=== PATIENT | female | born 1995 | race Caucasian/White ===

== ENCOUNTER 2016-07-19 15:37 | Emergency (ER) | payer OTHER ==
--- NOTE | 2016-07-19 17:01 | ED ---
General Adult HPI - General Chief complaint: Abdominal Pain Stated complaint: abdominal pain Time Seen by Provider: 07/19/16 16:38 Source: patient, RN notes reviewed Mode of arrival: ambulatory Limitations: no limitations - History of Present Illness Initial comments: Patient 20-year-old female who presents emergency room today with a chief complaint of symptoms of abdominal pain with nausea over the last day. Doesn't that symptoms started early this morning approximately 1 AM. She does admit to a crampy type sharp pain located in the epigastric area. She denies ever having similar symptoms in the past. Does admit to feeling nauseated but no vomiting. Denies any other complaints or symptoms. Patient denies any recent fever, chills, shortness of breath, chest pain, back pain, vomiting, numbness or tingling, dysuria or hematuria, constipation or diarrhea, headaches or visual changes, or any other complaints. - Related Data Previous Rx's Medication Instructions Recorded Omeprazole [PriLOSEC] 20 mg PO AC-BRKFST 14 Days 07/19/16 Ondansetron Odt [Zofran ODT] 4 mg PO Q8HR PRN #20 tab 07/19/16 Allergies Allergy/AdvReac Type Severity Reaction Status Date / Time hydromorphone HCl AdvReac Nausea & Verified 07/19/16 16:33 [From Dilaudid] Vomiting morphine AdvReac Nausea & Verified 07/19/16 16:33 Vomiting Review of Systems ROS Statement: Those systems with pertinent positive or pertinent negative responses have been documented in the HPI. ROS Other: All systems not noted in ROS Statement are negative. Past Medical History Past Medical History: No Reported History History of Any Multi-Drug Resistant Organisms: None Reported Past Surgical History: Section, Tonsillectomy Additional Past Surgical History / Comment(s): wisdom teeth Past Psychological History: Depression Smoking Status: Never smoker Past Alcohol Use History: Occasional Past Drug Use History: None Reported General Exam - General Exam Comments Initial Comments: General: The patient is awake and alert, in no distress, and does not appear acutely ill. Eye: Pupils are equal, round and reactive to light, extra-ocular movements are intact. No nystagmus. There is normal conjunctiva bilaterally. No signs of icterus. Ears, nose, mouth and throat: There are moist mucous membranes and no oral lesions. Neck: The neck is supple, there is no tenderness or JVD. Cardiovascular: There is a regular rate and rhythm. No murmur, rub or gallop is appreciated. Respiratory: Lungs are clear to auscultation, respirations are non-labored, breath sounds are equal. No wheezes, stridor, rales, or rhonchi. Gastrointestinal: Present. Normal bowel sounds. Soft on palpation. Patient does have mild tenderness epigastric. No rebound tenderness. No Guarding. Musculoskeletal: Normal ROM, no tenderness. Strength 5/5. Sensation intact. Pulses equal bilaterally 2+. Neurological: A&O x 3. CN II-XII intact, There are no obvious motor or sensory deficits. Coordination appears grossly intact. Speech is normal. Skin: Skin is warm and dry and no rashes or lesions are noted. Psychiatric: Cooperative, appropriate mood & affect, normal judgment. Limitations: no limitations Course Vital Signs 07/19/16 07/19/16 15:46 18:02 Temperature 99.2 F Pulse Rate 90 62 Respiratory 20 16 Rate Blood Pressure 115/72 95/51 O2 Sat by Pulse 98 100 Oximetry Medical Decision Making - Medical Decision Making Patient reexamined at this time shows no signs of distress. Patient resting comfortably in the stretcher. Patient's labs been reviewed are unremarkable. X -rays negative. Results were discussed with the patient. At this time patient will be discharged home with prescription for Zofran and omeprazole. Advised follow-up the family doctor over the next 2 days. Advised return to emergency room if any symptoms increase or worsen or for any other concerns. - Lab Data Result diagrams: 07/19/16 16:43 07/19/16 16:43 Lab Results 07/19/16 07/19/16 07/19/16 Range/Units 14:42 16:43 16:43 WBC 9.2 (3.8-10.6) k/uL RBC 5.26 (3.80-5.40) m/uL Hgb 15.9 (11.4-16.0) gm/dL Hct 47.4 H (34.0-46.0) % MCV 90.1 (80.0-100.0) fL MCH 30.2 (25.0-35.0) pg MCHC 33.6 (31.0-37.0) g/dL RDW 12.7 (11.5-15.5) % Plt Count 186 (150-450) k/uL Neutrophils % 78 % Lymphocytes % 16 % Monocytes % 4 % Eosinophils % 1 % Basophils % 1 % Neutrophils # 7.1 (1.3-7.7) k/uL Lymphocytes # 1.5 (1.0-4.8) k/uL Monocytes # 0.4 (0-1.0) k/uL Eosinophils # 0.1 (0-0.7) k/uL Basophils # 0.1 (0-0.2) k/uL Sodium 142 (137-145) mmol/L Potassium 3.9 (3.5-5.1) mmol/L Chloride 102 (98-107) mmol/L Carbon Dioxide 27 (22-30) mmol/L Anion Gap 13 mmol/L BUN 11 (7-17) mg/dL Creatinine 0.67 (0.52-1.04) mg/dL Est GFR (MDRD) Af Amer >60 (>60 ml/min/1.73 sqM) Est GFR (MDRD) Non-Af >60 (>60 ml/min/1.73 sqM) Glucose 82 (74-99) mg/dL Calcium 9.7 (8.4-10.2) mg/dL Total Bilirubin 1.5 H (0.2-1.3) mg/dL AST 24 (14-36) U/L ALT 24 (9-52) U/L Alkaline Phosphatase 70 (38-126) U/L Total Protein 8.4 H (6.3-8.2) g/dL Albumin 4.9 (3.5-5.0) g/dL Amylase 80 (30-110) U/L Lipase 65 (23-300) U/L Urine Color Urine Appearance (Clear) Urine pH (5.0-8.0) Ur Specific [place] (1.001-1.035) Urine Protein (Negative) Urine Glucose (UA) (Negative) Urine Ketones (Negative) Urine Blood (Negative) Urine Nitrite (Negative) Urine Bilirubin (Negative) Urine Urobilinogen (<2.0) mg/dL Ur Leukocyte Esterase (Negative) Urine HCG, Qual Not Detected (Not Detectd) 07/19/16 Range/Units 16:43 WBC (3.8-10.6) k/uL RBC (3.80-5.40) m/uL Hgb (11.4-16.0) gm/dL Hct (34.0-46.0) % MCV (80.0-100.0) fL MCH (25.0-35.0) pg MCHC (31.0-37.0) g/dL RDW (11.5-15.5) % Plt Count (150-450) k/uL Neutrophils % % Lymphocytes % % Monocytes % % Eosinophils % % Basophils % % Neutrophils # (1.3-7.7) k/uL Lymphocytes # (1.0-4.8) k/uL Monocytes # (0-1.0) k/uL Eosinophils # (0-0.7) k/uL Basophils # (0-0.2) k/uL Sodium (137-145) mmol/L Potassium (3.5-5.1) mmol/L Chloride (98-107) mmol/L Carbon Dioxide (22-30) mmol/L Anion Gap mmol/L BUN (7-17) mg/dL Creatinine (0.52-1.04) mg/dL Est GFR (MDRD) Af Amer (>60 ml/min/1.73 sqM) Est GFR (MDRD) Non-Af (>60 ml/min/1.73 sqM) Glucose (74-99) mg/dL Calcium (8.4-10.2) mg/dL Total Bilirubin (0.2-1.3) mg/dL AST (14-36) U/L ALT (9-52) U/L Alkaline Phosphatase (38-126) U/L Total Protein (6.3-8.2) g/dL Albumin (3.5-5.0) g/dL Amylase (30-110) U/L Lipase (23-300) U/L Urine Color Yellow Urine Appearance Clear (Clear) Urine pH 7.0 (5.0-8.0) Ur Specific [place] 1.020 (1.001-1.035) Urine Protein Negative (Negative) Urine Glucose (UA) Negative (Negative) Urine Ketones Negative (Negative) Urine Blood Negative (Negative) Urine Nitrite Negative (Negative) Urine Bilirubin Negative (Negative) Urine Urobilinogen <2.0 (<2.0) mg/dL Ur Leukocyte Esterase Negative (Negative) Urine HCG, Qual (Not Detectd) Disposition Clinical Impression: Abdominal pain Disposition: HOME SELF-CARE Condition: Good Instructions: Abdominal Pain (ED) Additional Instructions: Please use medication as discussed. Please follow-up with family doctor in the next 2 days of symptoms have not improved. Please return to emergency room if the symptoms increase or worsen or for any other concerns. Prescriptions: Omeprazole [PriLOSEC] 20 mg PO AC-BRKFST 14 Days Ondansetron Odt [Zofran ODT] 4 mg PO Q8HR PRN #20 tab PRN Reason: Nausea Time of Disposition: 18:14
[2016-07-19] MEDS: ONDANSETRON 4 MG/2 ML VIAL IVP STA (17:05)
[2016-07-19] MEDS: SODIUM CHLORIDE 0.9% 1,000 ML IV STA ×2 (17:05)
[2016-07-19 17:29] LABS: Basophils # (A) 0.1 k/uL (0-0.2); Basophils % (A) 1 %; CH 31.1; CHCM 34.7; Eosinophils # (A) 0.1 k/uL (0-0.7); Eosinophils % (A) 1 %; HCT 47.4 % (34.0-46.0); HDW 2.52; HGB 15.9 gm/dL (11.4-16.0); Luc # (Auto) 0.12; Luc % (Auto) 1; Lymphocytes # (A) 1.5 k/uL (1.0-4.8); Lymphocytes % (A) 16 %; MCH 30.2 pg (25.0-35.0); MCHC 33.6 g/dL (31.0-37.0); MCV 90.1 fL (80.0-100.0); Mean Platelet Volume 6.6; Monocytes # (A) 0.4 k/uL (0-1.0); Monocytes % (A) 4 %; Neutrophils # (A) 7.1 k/uL (1.3-7.7); Neutrophils % (A) 78 %; RBC 5.26 m/uL (3.80-5.40); RDW 12.7 % (11.5-15.5); WBC 9.2 k/uL (3.8-10.6)
[2016-07-19 17:32] LABS: Appearance,Urine Clear (Clear); Bilirubin,Urine Negative (Negative); Glucose,Urine (UA) Negative (Negative); Ketones,Urine Negative (Negative); Leukocyte Esterase,Urine Negative (Negative); Nitrite,Urine Negative (Negative); Protein,Urine Negative (Negative); UA Billing (MACRO vs. MICRO) CHEM; Urobilinogen,Urine <2.0 mg/dL (<2.0)
[2016-07-19 17:40] LABS: ALT 24 U/L (9-52); AST 24 U/L (14-36); Alkaline Phosphatase 70 U/L (38-126); Amylase 80 U/L (30-110); Anion Gap 13 mmol/L; Blood Urea Nitrogen 11 mg/dL (7-17); Calcium 9.7 mg/dL (8.4-10.2); Carbon Dioxide 27 mmol/L (22-30); Chloride 102 mmol/L (98-107); Glucose 82 mg/dL (74-99); Non-African American GFR(MDRD) >60 (>60 ml/min/1.73 sqM); Potassium 3.9 mmol/L (3.5-5.1); Sodium 142 mmol/L (137-145); Total Bilirubin 1.5 mg/dL (0.2-1.3); Total Protein 8.4 g/dL (6.3-8.2)
[2016-07-19] MEDS: MAG HYDROX/AL HYDROX/SIMETH 30 ML, HYOSCYAMINE ELIXIR 10 ML, CIMETIDINE HCL 300 MG, LID... PO STA ×4 (18:01)
--- NOTE | 2016-07-19 18:02 | XR ---
EXAMINATION TYPE: XR KUB DATE OF EXAM: 07/19/2016 5:55 PM COMPARISON: NONE HISTORY: Pain TECHNIQUE: Single supine KUB image of the abdomen is obtained FINDINGS: Small bowel demonstrates no evidence for dilatation or air fluid levels. Gas and fecal material is seen in non-distended colon. No convincing evidence for pneumoperitoneum. No unusual calcifications. The lung bases are clear. The osseous structures are intact. IMPRESSION: 1. Overall nonobstructive bowel gas pattern.
[2016-07-19 18:04] VITALS: RESP 16
[2016-07-19 18:32] VITALS: BP 128/68; PULSE 87; TEMP 98.6
== END 2016-07-19 18:30 | disposition home or self-care (01) ==
LOC: EC 15:37
DX: R10.13 Epigastric pain (principal); R11.0 Nausea; Z88.5 Allergy status to narcotic agent
CPT/HCPCS: 36415; 80053; 82150; 83690; 85025; 81003; 81025; 74000; 99284; 96374; 96361; J2405

== ENCOUNTER 2016-08-28 21:55 | Emergency (ER) | payer OTHER ==
[2016-08-28 22:12] VITALS: RESP 18
[2016-08-28] MEDS ORDERED: SODIUM CHLORIDE 0.9% 1,000 ML IV ONE (22:18)
[2016-08-28] MEDS ORDERED: SODIUM CHLORIDE 0.9% 500 ML IV ONE (22:18)
--- NOTE | 2016-08-28 22:20 | ED ---
Abdominal Pain HPI - General Chief Complaint: Abdominal Pain Stated Complaint: abdominal pain-6 wks preg Time Seen by Provider: 08/28/16 22:12 Source: patient, RN notes reviewed Mode of arrival: ambulatory Limitations: no limitations - History of Present Illness Initial Comments: This is a 21-year-old female presents emergency from for abdominal pain.This pain several the last 24 hours. Patient states that she's been feeling dizzy and nauseated with her though the pain started only today. Patient states she's fracture 7 weeks along. Patient has been seen by her lower clinic has not been seen by her [facility]. Patient is A1. Patient has no vaginal bleeding no vaginal discharge. Denies dysuria hematuria. Patient states not been drinking much fluids at this time. Patient has fever chills no back pain. - Related Data Home Medications Medication Instructions Recorded Confirmed No Known Home Medications [No 08/28/16 08/28/16 Known Home Medications] Allergies Allergy/AdvReac Type Severity Reaction Status Date / Time hydromorphone HCl AdvReac Nausea & Verified 08/28/16 22:24 [From Dilaudid] Vomiting morphine AdvReac Nausea & Verified 08/28/16 22:24 Vomiting Review of Systems ROS Statement: Those systems with pertinent positive or pertinent negative responses have been documented in the HPI. ROS Other: All systems not noted in ROS Statement are negative. Past Medical History Past Medical History: No Reported History History of Any Multi-Drug Resistant Organisms: None Reported Past Surgical History: Section, Tonsillectomy Additional Past Surgical History / Comment(s): wisdom teeth Past Psychological History: No Psychological Hx Reported Smoking Status: Never smoker Past Alcohol Use History: Rare Past Drug Use History: None Reported General Exam Limitations: no limitations General appearance: alert, in no apparent distress Neck exam: Present: normal inspection. Absent: tenderness, meningismus, lymphadenopathy Respiratory exam: Present: normal lung sounds bilaterally. Absent: respiratory distress, wheezes, rales, rhonchi, stridor Cardiovascular Exam: Present: regular rate, normal rhythm, normal heart sounds. Absent: systolic murmur, diastolic murmur, rubs, gallop, clicks GI/Abdominal exam: Present: soft, tenderness (Minimal suprapubic), normal bowel sounds. Absent: distended, guarding, rebound, rigid Back exam: Absent: CVA tenderness (R), CVA tenderness (L) Course Vital Signs 08/28/16 08/28/16 22:08 23:12 Temperature 98.2 F 97.9 F Pulse Rate 74 78 Respiratory 18 18 Rate Blood Pressure 113/72 97/59 O2 Sat by Pulse 100 100 Oximetry Medical Decision Making - Medical Decision Making 21-year-old female presents emergency department for abdominal pain . Patient ultrasound shows possible early gestational sac. Patient's hCG quantitative is 5000. Patient lab work otherwise within normal limits. Patient does feel improved after IV fluids. Patient may have had some mild dehydration related to her dizziness. Patient will be discharged at this time advised to increase fluids. - Lab Data Result diagrams: 08/28/16 22:20 08/28/16 22:20 Lab Results 08/28/16 08/28/16 08/28/16 Range/Units 22:20 22:20 22:20 WBC 8.1 (3.8-10.6) k/uL RBC 4.82 (3.80-5.40) m/uL Hgb 14.9 (11.4-16.0) gm/dL Hct 42.5 (34.0-46.0) % MCV 88.2 (80.0-100.0) fL MCH 30.9 (25.0-35.0) pg MCHC 35.0 (31.0-37.0) g/dL RDW 12.3 (11.5-15.5) % Plt Count 200 (150-450) k/uL Neutrophils % 65 % Lymphocytes % 26 % Monocytes % 6 % Eosinophils % 1 % Basophils % 1 % Neutrophils # 5.3 (1.3-7.7) k/uL Lymphocytes # 2.1 (1.0-4.8) k/uL Monocytes # 0.5 (0-1.0) k/uL Eosinophils # 0.1 (0-0.7) k/uL Basophils # 0.0 (0-0.2) k/uL Sodium 140 (137-145) mmol/L Potassium 4.0 (3.5-5.1) mmol/L Chloride 107 (98-107) mmol/L Carbon Dioxide 21 L (22-30) mmol/L Anion Gap 12 mmol/L BUN 13 (7-17) mg/dL Creatinine 0.60 (0.52-1.04) mg/dL Est GFR (MDRD) Af Amer >60 (>60 ml/min/1.73 sqM) Est GFR (MDRD) Non-Af >60 (>60 ml/min/1.73 sqM) Glucose 79 (74-99) mg/dL Calcium 9.6 (8.4-10.2) mg/dL Total Bilirubin 0.9 (0.2-1.3) mg/dL AST 20 (14-36) U/L ALT 23 (9-52) U/L Alkaline Phosphatase 51 (38-126) U/L Total Protein 7.4 (6.3-8.2) g/dL Albumin 4.6 (3.5-5.0) g/dL Lipase 65 (23-300) U/L HCG, Quant 5075.9 mIU/mL Urine Color Yellow Urine Appearance Cloudy H (Clear) Urine pH 5.5 (5.0-8.0) Ur Specific [place] 1.024 (1.001-1.035) Urine Protein Trace H (Negative) Urine Glucose (UA) Negative (Negative) Urine Ketones Trace H (Negative) Urine Blood Negative (Negative) Urine Nitrite Negative (Negative) Urine Bilirubin Negative (Negative) Urine Urobilinogen <2.0 (<2.0) mg/dL Ur Leukocyte Esterase Trace H (Negative) Urine RBC 1 (0-5) /hpf Urine WBC 10 H (0-5) /hpf Ur Squamous Epith Cells 10 H (0-4) /hpf Urine Bacteria Rare H (None) /hpf Urine Mucus Many H (None) /hpf Disposition Clinical Impression: Mild dehydration, Abdominal pain during Disposition: HOME SELF-CARE Condition: Stable Instructions: Abdominal Pain in (ED) Additional Instructions: Please return to the Emergency Department if symptoms worsen or any other concerns. Referrals: Otto Gold MD [Primary Care Provider] - 1-2 days Time of Disposition: 23:15
[2016-08-28 22:38] LABS: Basophils % (A) 1 %; CH 31.3; CHCM 35.6; Eosinophils # (A) 0.1 k/uL (0-0.7); Eosinophils % (A) 1 %; HCT 42.5 % (34.0-46.0); HDW 2.63; HGB 14.9 gm/dL (11.4-16.0); Luc # (Auto) 0.16; Luc % (Auto) 2; Lymphocytes # (A) 2.1 k/uL (1.0-4.8); Lymphocytes % (A) 26 %; MCH 30.9 pg (25.0-35.0); MCV 88.2 fL (80.0-100.0); Mean Platelet Volume 6.6; Monocytes # (A) 0.5 k/uL (0-1.0); Monocytes % (A) 6 %; Neutrophils # (A) 5.3 k/uL (1.3-7.7); Neutrophils % (A) 65 %; RBC 4.82 m/uL (3.80-5.40); RDW 12.3 % (11.5-15.5); WBC 8.1 k/uL (3.8-10.6); WBC (Perox) 7.95
[2016-08-28 22:41] LABS: Appearance,Urine Cloudy (Clear); Bacteria,Urine Rare /hpf; Bilirubin,Urine Negative (Negative); Glucose,Urine (UA) Negative (Negative); Ketones,Urine Trace (Negative); Leukocyte Esterase,Urine Trace (Negative); Mucus,Urine Many /hpf; Nitrite,Urine Negative (Negative); PH, Urine 5.5 (5.0-8.0); Particle Count 10645; Protein,Urine Trace (Negative); RBC,Urine 1 /hpf (0-5); Specific Gravity,Urine 1.024 (1.001-1.035); Squamous Epithelial Cell,Urine 10 /hpf (0-4); UA Billing (MACRO vs. MICRO) MICRO; Urobilinogen,Urine <2.0 mg/dL (<2.0); WBC,Urine 10 /hpf (0-5)
[2016-08-28 22:49] LABS: ALT 23 U/L (9-52); AST 20 U/L (14-36); Alkaline Phosphatase 51 U/L (38-126); Anion Gap 12 mmol/L; Blood Urea Nitrogen 13 mg/dL (7-17); Calcium 9.6 mg/dL (8.4-10.2); Carbon Dioxide 21 mmol/L (22-30); Chloride 107 mmol/L (98-107); Glucose 79 mg/dL (74-99); Non-African American GFR(MDRD) >60 (>60 ml/min/1.73 sqM); Sodium 140 mmol/L (137-145); Total Bilirubin 0.9 mg/dL (0.2-1.3); Total Protein 7.4 g/dL (6.3-8.2)
[2016-08-28 23:06] LABS: HCG,Quantitative Serum 5075.9 mIU/mL
[2016-08-28 23:13] VITALS: BP 97/59; PULSE 78; TEMP 97.9
--- NOTE | 2016-08-28 23:21 | US ---
EXAM: US First Trimester, Transabdominal US , Transvaginal CLINICAL HISTORY: Pain. Beta hCG level unknown. Unsure of LMP. TECHNIQUE: Real-time transabdominal and transvaginal obstetrical ultrasound of the maternal pelvis and a first trimester with image documentation. Transvaginal imaging was used for better evaluation of the fetus and adnexa. COMPARISON: No relevant prior studies available. FINDINGS: Gestation: Probable early intrauterine gestational sac with mean sac diameter of 0.69 cm (out of range for dating). Possible small yolk sac within the aforementioned cystic structure. No pole visualized. Uterus/cervix: Uterus: 8.1 x 3.9 x 5.1 cm. Endometrium is thickened and contains possibly early intrauterine gestational sac. No myometrial mass. Ovaries: Right ovary measures 3.0 x 1.4 x 1.3 cm. Left ovary measures 3.1 x 1.7 x 1.7 cm. Right ovarian cyst measuring 1.7 x 1.0 x 0.8 cm , possibly corpus luteum cyst. Free fluid: Trace free fluid in the pelvis. IMPRESSION: 1. Probable early intrauterine gestational sac with mean sac diameter of 0.63 to 0.65 cm (out of range for dating). Recommend correlation with serial beta hCG levels and repeat ultrasound to reassess. 2. Right ovarian cyst measuring 1.7 x 1.0 x 0.8 cm , possibly corpus luteum cyst. 3. Trace free fluid in the pelvis.
== END 2016-08-28 23:22 | disposition home or self-care (01) ==
LOC: EC 21:55
DX: O99.281 Endocrine, nutritional and metabolic diseases complicating pregnancy, first trimester (principal); O99.89 Other specified diseases and conditions complicating pregnancy, childbirth and the puerperium; E86.0 Dehydration; R10.30 Lower abdominal pain, unspecified; R11.0 Nausea; Z3A.01 Less than 8 weeks gestation of pregnancy; Z88.5 Allergy status to narcotic agent
CPT/HCPCS: 36415; 76801; 76817; 80053; 81001; 83690; 84702; 85025; 96360; 99284

== ENCOUNTER 2016-09-08 15:18 | Emergency (ER) | payer OTHER ==
[2016-09-08 15:23] VITALS: BP 125/75; PULSE 84; RESP 16; TEMP 97.4
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
== END 2016-09-08 16:12 | disposition home or self-care (01) ==
LOC: EC 15:18
DX: O99.89 Other specified diseases and conditions complicating pregnancy, childbirth and the puerperium (principal); M54.9 Dorsalgia, unspecified; Z3A.01 Less than 8 weeks gestation of pregnancy; Z79.899 Other long term (current) drug therapy; Z88.5 Allergy status to narcotic agent; V87.9XXA Person injured in other specified (collision)(noncollision) transport accidents involving nonmotor vehicle (traffic), initial encounter; Y92.410 Unspecified street and highway as the place of occurrence of the external cause
CPT/HCPCS: 99283

== ENCOUNTER 2016-09-13 18:09 | Emergency (ER) | payer OTHER ==
--- NOTE | 2016-09-13 20:48 | ED ---
Female Urogenital HPI - General Chief complaint: OB/Uterine Contractions Stated complaint: cramps,8 weeks preg Time Seen by Provider: 09/13/16 19:57 Source: patient, RN notes reviewed Mode of arrival: ambulatory Limitations: no limitations - History of Present Illness Initial comments: Patient is a 21-year-old female since emergency room for evaluation of abdominal pain. Patient states she is about 8 weeks . Patient states she found out a few weeks ago from home test that she was secondary to missing her menstrual cycle. Patient states her last menstrual cycle was 07/17/2016. Patient states around 2 PM she began developing lower pelvic pain. Patient states it's on and off cramping type pain. Patient is taking anything for pain. Patient states she has a history of 1 prior full- term and 1 prior miscarriage. Patient denies history of ectopic pregnancies. Patient denies any abnormal vaginal discharge or vaginal bleeding. Patient states she's been nauseous throughout her . Patient denies any nausea today. Patient denies dizziness. Patient denies chest pain or shortness of breath. Patient denies fevers or chills. Last Menstrual Period: 07/18/16 - Related Data Home Medications Medication Instructions Recorded Confirmed Pnv,Calcium 72/Iron/Folic Acid 1 tab PO DAILY 09/08/16 09/13/16 [ Plus Tablet] Allergies Allergy/AdvReac Type Severity Reaction Status Date / Time hydromorphone HCl AdvReac Nausea & Verified 09/13/16 21:14 [From Dilaudid] Vomiting morphine AdvReac Nausea & Verified 09/13/16 21:14 Vomiting Review of Systems ROS Statement: Those systems with pertinent positive or pertinent negative responses have been documented in the HPI. ROS Other: All systems not noted in ROS Statement are negative. Past Medical History Past Medical History: No Reported History History of Any Multi-Drug Resistant Organisms: None Reported Past Surgical History: Section, Tonsillectomy Additional Past Surgical History / Comment(s): wisdom teeth Past Psychological History: No Psychological Hx Reported Smoking Status: Never smoker Past Alcohol Use History: Rare Past Drug Use History: None Reported General Exam - General Exam Comments Initial Comments: sitting in exam room, no distress. Limitations: no limitations General appearance: alert, in no apparent distress Head exam: Present: atraumatic, normocephalic, normal inspection Eye exam: Present: normal appearance ENT exam: Present: normal exam Neck exam: Present: normal inspection Respiratory exam: Present: normal lung sounds bilaterally. Absent: respiratory distress Cardiovascular Exam: Present: regular rate, normal rhythm, normal heart sounds GI/Abdominal exam: Present: soft, tenderness (right lower quadrant/left lower quadrant), normal bowel sounds. Absent: distended, guarding, rebound, rigid External exam: Present: normal external exam Speculum exam: Present: vaginal discharge By manual exam: Present: normal by manual exam Extremities exam: Present: normal inspection Back exam: Present: normal inspection Neurological exam: Present: alert, oriented X3, CN II-XII intact, normal gait Psychiatric exam: Present: normal affect, normal mood Skin exam: Present: warm, dry, intact, normal color. Absent: rash Course Vital Signs 09/13/16 09/13/16 18:40 22:57 Temperature 99.7 F H 97.4 F L Pulse Rate 59 L 70 Respiratory 20 18 Rate Blood Pressure 95/58 110/59 O2 Sat by Pulse 99 98 Oximetry Medical Decision Making - Medical Decision Making Patient is a 21-year-old female since emergency room for evaluation of lower pelvic pain. Patient is . Ultrasound: Gestational age is 7 weeks 1 day. There is a tiny subchorionic fluid collection that could be a minimal perigestational hemorrhage. patient has no vaginal bleeding. advised patient to follow-up with [facility]. Return parameters discussed. Case discussed Dr. [place]. - Lab Data Lab Results 09/13/16 09/13/16 Range/Units 20:56 20:56 Urine Color Yellow Urine Appearance Clear (Clear) Urine pH 6.0 (5.0-8.0) Ur Specific [place] 1.021 (1.001-1.035) Urine Protein Negative (Negative) Urine Glucose (UA) Negative (Negative) Urine Ketones Negative (Negative) Urine Blood Negative (Negative) Urine Nitrite Negative (Negative) Urine Bilirubin Negative (Negative) Urine Urobilinogen 2.0 (<2.0) mg/dL Ur Leukocyte Esterase Negative (Negative) Trichomonas Ag (Rapid) Negative (Negative) - Radiology Data Radiology results: report reviewed, image reviewed Disposition Clinical Impression: Abdominal pain during Disposition: HOME SELF-CARE Condition: Good Instructions: Abdominal Pain in (ED) Additional Instructions: Refrain from heavy lifting. Take Tylenol as needed for pain. Please follow up with [facility]. If any new symptom arises or symptoms worsen, return to ER as soon as possible. Referrals: Otto Gold MD [Primary Care Provider] - 1-2 days Time of Disposition: 22:48
[2016-09-13] MEDS ORDERED: ACETAMINOPHEN TAB 325 MG TAB PO STA (20:56)
[2016-09-13 21:11] LABS: Appearance,Urine Clear (Clear); Bilirubin,Urine Negative (Negative); Glucose,Urine (UA) Negative (Negative); Ketones,Urine Negative (Negative); Leukocyte Esterase,Urine Negative (Negative); Nitrite,Urine Negative (Negative); Protein,Urine Negative (Negative); Specific Gravity,Urine 1.021 (1.001-1.035); UA Billing (MACRO vs. MICRO) CHEM
--- NOTE | 2016-09-13 21:54 | US ---
EXAMINATION TYPE: US OB <=14 wks transvag DATE OF EXAM: 09/13/2016 COMPARISON: Prior in PACS CLINICAL HISTORY: Pain. EXAM PERFORMED: Transvaginal (TV) and Transabdominal (TA) EXAM MEASUREMENTS: GESTATIONAL AGE / DATING Physician Established: Not established Dates by LMP: Unsure Dates by First Scan: No IUP visualized Dates by Current Scan for: (7 weeks/1 days) EDC: 05/01/2017 MATERNAL ANATOMY Uterus: 8.4 x 5.3 x 5.1 cm Right Ovary: 2.8 x 1.1 x 1.8 cm Left Ovary: 2.5 x 1.5 x 2.0 cm Post CDS / Adnexa: Small amount of free fluid visualized in cul de sac Presence of free fluid: Yes Presence of corpus luteal cyst: No Presence of subchorionic bleed: Yes, measuring 1.7 x 0.3 x 1.3 cm GESTATION / SURVEY CRL: 1.07 (7 weeks/1 days) Yolk Sac (normal less than 6mm): 3 mm Heart Rate: 147 bpm Rhythm: Normal IUP: Viable IUP Date of LMP: Unsure Beta HcG (if available): Not available at time of exam Viable IUP with an GRACY of 05/01/2017 IMPRESSION: The ultrasound gestational age is 7 weeks 1 day. There is a tiny subchorionic fluid collection that c ould be a minimal perigestational hemorrhage.
[2016-09-13 22:57] VITALS: BP 110/59; PULSE 70; RESP 18; TEMP 97.4
== END 2016-09-13 22:57 | disposition home or self-care (01) ==
LOC: EC 18:09
DX: O99.89 Other specified diseases and conditions complicating pregnancy, childbirth and the puerperium (principal); R10.31 Right lower quadrant pain; R10.32 Left lower quadrant pain; Z88.5 Allergy status to narcotic agent; Z98.890 Other specified postprocedural states; Z3A.08 8 weeks gestation of pregnancy; Z79.899 Other long term (current) drug therapy
CPT/HCPCS: 76801; 76817; 81003; 87070; 87205; 87491; 87591; 87808; 99284

== ENCOUNTER → 2016-10-24 | Outpatient (CLI) | payer OTHER ==
[2016-10-24 13:40] LABS: CH 31.4; CHCM 35.4; HCT 43.2 % (34.0-46.0); HDW 2.74; HGB 14.7 gm/dL (11.4-16.0); MCH 30.3 pg (25.0-35.0); MCHC 33.9 g/dL (31.0-37.0); MCV 89.4 fL (80.0-100.0); Mean Platelet Volume 6.6; RBC 4.84 m/uL (3.80-5.40); RDW 13.1 % (11.5-15.5); WBC 7.8 k/uL (3.8-10.6)
[2016-10-24 13:51] LABS: Glucose 105 mg/dL (74-99); Non-African American GFR(MDRD) >60 (>60 ml/min/1.73 sqM)
[2016-10-24 14:20] LABS: Hepatitis B Surface Ag Index 0.06
[2016-10-25 04:36] LABS: Toxoplasma Antibody (IgG) <3.0 IU/mL (<7.2)
== END | disposition home or self-care (01) ==
LOC: LABWHC1 13:08
PROVIDERS: ATTEND Obstetrics & Gynecology
DX: Z34.81 Encounter for supervision of other normal pregnancy, first trimester (principal)
CPT/HCPCS: 36415; 82565; 82947; 85027; 86762; 86777; 86778; 86780; 86850; 86900; 86901; 87340

== ENCOUNTER 2016-11-02 15:47 | Emergency (ER) | payer OTHER ==
[2016-11-02 15:53] VITALS: TEMP 98.3
[2016-11-02] MEDS ORDERED: SODIUM CHLORIDE 0.9% 1,000 ML IV STA (16:18)
[2016-11-02] MEDS ORDERED: MECLIZINE 12.5 MG TAB PO STA (16:20)
--- NOTE | 2016-11-02 16:25 | ED ---
General Adult HPI - General Chief complaint: Dizziness Stated complaint: 15 weeks /Dizzy/Lightheaded Time Seen by Provider: 11/02/16 16:09 Source: patient, RN notes reviewed Mode of arrival: ambulatory Limitations: no limitations - History of Present Illness Initial comments: Patient 21-year-old female who is approximately 15 weeks , who presents emergency room today with a chief complaint of feeling lightheaded and dizzy. She does admit that symptoms started yesterday. States that when she is up moving around symptoms seem to be worse. States feels unsteady on her feet. She describes it as swaying back and forth. Patient does admit that she thought maybe she was dehydrated due to symptoms of nausea vomiting due to the . She states that she did try to increase fluids last night with no improvement. Patient denies any other complaints or symptoms. Patient denies any recent fever, chills, shortness of breath, chest pain, back pain, abdominal pain, numbness or tingling, dysuria or hematuria, constipation or diarrhea, headaches or visual changes, or any other complaints. - Related Data Home Medications Medication Instructions Recorded Confirmed Pnv,Calcium 72/Iron/Folic Acid 1 tab PO DAILY 09/08/16 11/02/16 [ Plus Tablet] Previous Rx's Medication Instructions Recorded Metoclopramide HCl [Reglan] 10 mg PO Q6HR PRN #5 day 11/02/16 Allergies Allergy/AdvReac Type Severity Reaction Status Date / Time hydromorphone HCl AdvReac Nausea & Verified 11/02/16 16:11 [From Dilaudid] Vomiting morphine AdvReac Nausea & Verified 11/02/16 16:11 Vomiting Review of Systems ROS Statement: Those systems with pertinent positive or pertinent negative responses have been documented in the HPI. ROS Other: All systems not noted in ROS Statement are negative. Past Medical History Past Medical History: No Reported History History of Any Multi-Drug Resistant Organisms: None Reported Past Surgical History: Section, Tonsillectomy Additional Past Surgical History / Comment(s): wisdom teeth Past Psychological History: No Psychological Hx Reported Smoking Status: Never smoker Past Alcohol Use History: Rare Past Drug Use History: None Reported General Exam - General Exam Comments Initial Comments: General: The patient is awake and alert, in no distress, and does not appear acutely ill. Eye: Pupils are equal, round and reactive to light, extra-ocular movements are intact. No nystagmus. There is normal conjunctiva bilaterally. No signs of icterus. Ears, nose, mouth and throat: There are moist mucous membranes and no oral lesions. Neck: The neck is supple, there is no tenderness or JVD. Cardiovascular: There is a regular rate and rhythm. No murmur, rub or gallop is appreciated. Respiratory: Lungs are clear to auscultation, respirations are non-labored, breath sounds are equal. No wheezes, stridor, rales, or rhonchi. Gastrointestinal: Soft, non-distended, non-tender abdomen without masses or organomegaly noted. There is no rebound or guarding present. No CVA tenderness. Bowel sounds are unremarkable. Musculoskeletal: Normal ROM, no tenderness. Strength 5/5. Sensation intact. Pulses equal bilaterally 2+. Neurological: A&O x 3. CN II-XII intact, There are no obvious motor or sensory deficits. Coordination appears grossly intact. Speech is normal. Skin: Skin is warm and dry and no rashes or lesions are noted. Psychiatric: Cooperative, appropriate mood & affect, normal judgment. Limitations: no limitations Course Vital Signs 11/02/16 11/02/16 15:50 16:30 Temperature 98.3 F Pulse Rate 64 78 Respiratory 18 20 Rate Blood Pressure 103/71 100/55 O2 Sat by Pulse 99 100 Oximetry EKG Findings - EKG Comments: EKG Findings:: EKG performed at 1637: A 12-lead EKG was performed and interpreted by me as showing the following: Rate is 71, and rhythm is normal sinus. There are normal QRS complexes and normal R-wave progression. ST segments have no elevation or depression, and WA segments appear normal. Medical Decision Making - Medical Decision Making Patient reexamined at this time shows no signs of distress. Patient's initial blood glucose off her labs is 63. She was given crackers juice here in the emergency room blood sugar now 86. She does not that she is feeling better. She states still feels a little lightheaded. Patient given a liter bolus. Remaining labs been reviewed. Case discussed with attending physician Dr. Dobson. Patient will discharged home given a prescription for Reglan for her nausea vomiting. Advised to eat frequent small meals. Advised to increase oral fluids. Advised to follow-up with her [employer] tomorrow. Advised to return here to emergency room if any symptoms increase or worsen or for any other concerns. Patient states understanding and is in agreement. - Lab Data Result diagrams: 11/02/16 16:35 11/02/16 16:35 Lab Results 11/02/16 11/02/16 11/02/16 Range/Units 16:35 16:35 16:35 WBC 10.4 (3.8-10.6) k/uL RBC 4.83 (3.80-5.40) m/uL Hgb 14.7 (11.4-16.0) gm/dL Hct 42.9 (34.0-46.0) % MCV 88.8 (80.0-100.0) fL MCH 30.5 (25.0-35.0) pg MCHC 34.4 (31.0-37.0) g/dL RDW 13.7 (11.5-15.5) % Plt Count 190 (150-450) k/uL Neutrophils % 83 % Lymphocytes % 12 % Monocytes % 4 % Eosinophils % 0 % Basophils % 0 % Neutrophils # 8.6 H (1.3-7.7) k/uL Lymphocytes # 1.2 (1.0-4.8) k/uL Monocytes # 0.4 (0-1.0) k/uL Eosinophils # 0.0 (0-0.7) k/uL Basophils # 0.0 (0-0.2) k/uL Sodium 135 L (137-145) mmol/L Potassium 4.5 (3.5-5.1) mmol/L Chloride 106 (98-107) mmol/L Carbon Dioxide 18 L (22-30) mmol/L Anion Gap 11 mmol/L BUN 7 (7-17) mg/dL Creatinine 0.54 (0.52-1.04) mg/dL Est GFR (MDRD) Af Amer >60 (>60 ml/min/1.73 sqM) Est GFR (MDRD) Non-Af >60 (>60 ml/min/1.73 sqM) Glucose 63 L (74-99) mg/dL POC Glucose (mg/dL) (75-99) mg/dL POC Glu Care Connector ID Calcium 8.8 (8.4-10.2) mg/dL Total Bilirubin 1.0 (0.2-1.3) mg/dL AST 22 (14-36) U/L ALT 23 (9-52) U/L Alkaline Phosphatase 59 (38-126) U/L Total Protein 6.6 (6.3-8.2) g/dL Albumin 3.7 (3.5-5.0) g/dL Urine Color Yellow Urine Appearance Clear (Clear) Urine pH 7.0 (5.0-8.0) Ur Specific [place] 1.018 (1.001-1.035) Urine Protein Trace H (Negative) Urine Glucose (UA) Negative (Negative) Urine Ketones 2+ H (Negative) Urine Blood Negative (Negative) Urine Nitrite Negative (Negative) Urine Bilirubin Negative (Negative) Urine Urobilinogen 3.0 (<2.0) mg/dL Ur Leukocyte Esterase Trace H (Negative) Urine RBC 2 (0-5) /hpf Urine WBC 6 H (0-5) /hpf Ur Squamous Epith Cells 2 (0-4) /hpf Urine Mucus Rare H (None) /hpf 11/02/16 Range/Units 17:53 WBC (3.8-10.6) k/uL RBC (3.80-5.40) m/uL Hgb (11.4-16.0) gm/dL Hct (34.0-46.0) % MCV (80.0-100.0) fL MCH (25.0-35.0) pg MCHC (31.0-37.0) g/dL RDW (11.5-15.5) % Plt Count (150-450) k/uL Neutrophils % % Lymphocytes % % Monocytes % % Eosinophils % % Basophils % % Neutrophils # (1.3-7.7) k/uL Lymphocytes # (1.0-4.8) k/uL Monocytes # (0-1.0) k/uL Eosinophils # (0-0.7) k/uL Basophils # (0-0.2) k/uL Sodium (137-145) mmol/L Potassium (3.5-5.1) mmol/L Chloride (98-107) mmol/L Carbon Dioxide (22-30) mmol/L Anion Gap mmol/L BUN (7-17) mg/dL Creatinine (0.52-1.04) mg/dL Est GFR (MDRD) Af Amer (>60 ml/min/1.73 sqM) Est GFR (MDRD) Non-Af (>60 ml/min/1.73 sqM) Glucose (74-99) mg/dL POC Glucose (mg/dL) 86 (75-99) mg/dL POC Glu Care Connector ID [place] Calcium (8.4-10.2) mg/dL Total Bilirubin (0.2-1.3) mg/dL AST (14-36) U/L ALT (9-52) U/L Alkaline Phosphatase (38-126) U/L Total Protein (6.3-8.2) g/dL Albumin (3.5-5.0) g/dL Urine Color Urine Appearance (Clear) Urine pH (5.0-8.0) Ur Specific [place] (1.001-1.035) Urine Protein (Negative) Urine Glucose (UA) (Negative) Urine Ketones (Negative) Urine Blood (Negative) Urine Nitrite (Negative) Urine Bilirubin (Negative) Urine Urobilinogen (<2.0) mg/dL Ur Leukocyte Esterase (Negative) Urine RBC (0-5) /hpf Urine WBC (0-5) /hpf Ur Squamous Epith Cells (0-4) /hpf Urine Mucus (None) /hpf Disposition Clinical Impression: Hypoglycemia, Hyperemesis gravidarum Disposition: HOME SELF-CARE Condition: Good Instructions: Dizziness (ED) Additional Instructions: General: The patient is awake and alert, in no distress, and does not appear acutely ill. Eye: Pupils are equal, round and reactive to light, extra-ocular movements are intact. No nystagmus. There is normal conjunctiva bilaterally. No signs of icterus. Ears, nose, mouth and throat: There are moist mucous membranes and no oral lesions. Neck: The neck is supple, there is no tenderness or JVD. Cardiovascular: There is a regular rate and rhythm. No murmur, rub or gallop is appreciated. Respiratory: Lungs are clear to auscultation, respirations are non-labored, breath sounds are equal. No wheezes, stridor, rales, or rhonchi. Gastrointestinal: [Soft, non-distended, non-tender abdomen without masses or organomegaly noted. There is no rebound or guarding present. No CVA tenderness. Bowel sounds are unremarkable.] Musculoskeletal: Normal ROM, no tenderness. Strength 5/5. Sensation intact. Pulses equal bilaterally 2+. Neurological: A&O x 3. CN II-XII intact, There are no obvious motor or sensory deficits. Coordination appears grossly intact. Speech is normal. Skin: Skin is warm and dry and no rashes or lesions are noted. Psychiatric: Cooperative, appropriate mood & affect, normal judgment. Prescriptions: Metoclopramide HCl [Reglan] 10 mg PO Q6HR PRN #5 day PRN Reason: Nausea Referrals: Otto Gold MD [Primary Care Provider] - 1-2 days Time of Disposition: 18:06
[2016-11-02 16:50] VITALS: RESP 20
[2016-11-02 17:08] LABS: Basophils % (A) 0 %; CH 31.6; CHCM 35.8; Eosinophils % (A) 0 %; HCT 42.9 % (34.0-46.0); HDW 2.77; HGB 14.7 gm/dL (11.4-16.0); Luc # (Auto) 0.12; Luc % (Auto) 1; Lymphocytes # (A) 1.2 k/uL (1.0-4.8); Lymphocytes % (A) 12 %; MCH 30.5 pg (25.0-35.0); MCHC 34.4 g/dL (31.0-37.0); MCV 88.8 fL (80.0-100.0); Monocytes # (A) 0.4 k/uL (0-1.0); Monocytes % (A) 4 %; Neutrophils # (A) 8.6 k/uL (1.3-7.7); Neutrophils % (A) 83 %; RBC 4.83 m/uL (3.80-5.40); RDW 13.7 % (11.5-15.5); WBC 10.4 k/uL (3.8-10.6); WBC (Perox) 10.03
[2016-11-02 17:13] LABS: Appearance,Urine Clear (Clear); Bilirubin,Urine Negative (Negative); Glucose,Urine (UA) Negative (Negative); Ketones,Urine 2+ (Negative); Leukocyte Esterase,Urine Trace (Negative); Mucus,Urine Rare /hpf; Nitrite,Urine Negative (Negative); Particle Count 2782; Protein,Urine Trace (Negative); RBC,Urine 2 /hpf (0-5); Specific Gravity,Urine 1.018 (1.001-1.035); Squamous Epithelial Cell,Urine 2 /hpf (0-4); UA Billing (MACRO vs. MICRO) MICRO; WBC,Urine 6 /hpf (0-5)
[2016-11-02 17:14] LABS: ALT 23 U/L (9-52); AST 22 U/L (14-36); Alkaline Phosphatase 59 U/L (38-126); Anion Gap 11 mmol/L; Blood Urea Nitrogen 7 mg/dL (7-17); Calcium 8.8 mg/dL (8.4-10.2); Carbon Dioxide 18 mmol/L (22-30); Chloride 106 mmol/L (98-107); Glucose 63 mg/dL (74-99); Non-African American GFR(MDRD) >60 (>60 ml/min/1.73 sqM); Potassium 4.5 mmol/L (3.5-5.1); Sodium 135 mmol/L (137-145); Total Protein 6.6 g/dL (6.3-8.2)
[2016-11-02 17:54] LABS: Glucose,Whole Blood 86 mg/dL (75-99)
[2016-11-02 18:17] VITALS: BP 107/67; PULSE 88
== END 2016-11-02 18:17 | disposition home or self-care (01) ==
LOC: EC 15:47
DX: O21.0 Mild hyperemesis gravidarum (principal); O99.282 Endocrine, nutritional and metabolic diseases complicating pregnancy, second trimester; E16.2 Hypoglycemia, unspecified; Z3A.15 15 weeks gestation of pregnancy; Z79.899 Other long term (current) drug therapy; Z88.5 Allergy status to narcotic agent
CPT/HCPCS: 36415; 80053; 81001; 85025; 87086; 93005; 96360; 99284

== ENCOUNTER 2017-12-04 13:34 | Emergency (ER) | payer OTHER ==
[2017-12-04 13:39] VITALS: BP 113/78; PULSE 100; RESP 18; TEMP 98.2
--- NOTE | 2017-12-04 14:05 | ED ---
Female Urogenital HPI - General Chief complaint: Urogenital Stated complaint: poss UTI Time Seen by Provider: 12/04/17 13:42 Source: patient, RN notes reviewed Mode of arrival: ambulatory Limitations: no limitations - History of Present Illness Initial comments: This is a 22-year-old female who presents to the emergency department with chief complaint of possible UTI and STD. Patient states that she has been feeling sweaty and having chills. She reports a fever 101 last night. She states that she has been having right flank pain, urinary frequency and feeling like she is not completely emptying her bladder. She reports a stinging sensation with urination. Patient states that she has been with the same sexual partner for the past 2 years but states she is unsure if he has been faithful. She states she is concerned for an STD as she is experiencing external genitalia irritation. Patient denies any abdominal pain, nausea or vomiting, diarrhea or constipation. Last Menstrual Period: 11/13/17 - Related Data Previous Rx's Medication Instructions Recorded valACYclovir HCL [Valtrex] 1,000 mg PO BID 7 Days #14 tablet 12/04/17 Allergies Allergy/AdvReac Type Severity Reaction Status Date / Time hydromorphone HCl AdvReac Nausea & Verified 12/04/17 13:54 [From Dilaudid] Vomiting morphine AdvReac Nausea & Verified 12/04/17 13:54 Vomiting Review of Systems ROS Statement: Those systems with pertinent positive or pertinent negative responses have been documented in the HPI. ROS Other: All systems not noted in ROS Statement are negative. Past Medical History Past Medical History: No Reported History History of Any Multi-Drug Resistant Organisms: None Reported Past Surgical History: Section, Tonsillectomy Additional Past Surgical History / Comment(s): wisdom teeth Past Psychological History: No Psychological Hx Reported Smoking Status: Never smoker Past Alcohol Use History: Occasional Past Drug Use History: None Reported General Exam - General Exam Comments Initial Comments: General: Awake and alert, well-developed; in no apparent distress. HEENT: Head atraumatic, normocephalic. Pupils are equal, round and reactive to light. Extraocular movements intact. Oropharynx moist without erythema or exudate. Neck: Supple. Normal ROM. Cardiovascular: Regular rate and rhythm. No murmurs, rubs or gallops. Chest symmetrical. Respiratory: Lungs clear to auscultation bilaterally. No wheezes, rales or rhonchi. Normal respiratory effort with no use of accessory muscles. Abdomen: Soft, non-tender, non-distended. No rigidity, rebound or guarding. Normal bowel sounds in all 4 quadrants. Mild right CVA tenderness. Musculoskeletal: Normal ROM, no tenderness bilateral upper and lower extremities. Ambulating normally. Skin: [place], warm and dry without rashes or lesions. Neurological: Alert and oriented x3. CN II-XII grossly intact. Speech is fluent and answers are appropriate. No focal neuro deficits. Psychiatric: Normal mood and affect. No overt signs of depression or anxiety noted. Limitations: no limitations External exam: Present: lesions (vesicular lesions bilateral labia majora and ulcerations of right labia minora-painful ). Absent: erythema, swelling, lacerations, ecchymosis Speculum exam: Present: vaginal discharge (thin, white), other (whitish ulcer superior vaginal wall ). Absent: erythema, vaginal bleeding By manual exam: Present: normal by manual exam. Absent: cervical motion tenderness, adnexal tenderness, uterine tenderness Course Vital Signs 12/04/17 13:37 Temperature 98.2 F Pulse Rate 100 Respiratory 18 Rate Blood Pressure 113/78 O2 Sat by Pulse 99 Oximetry Medical Decision Making - Medical Decision Making This is a 22-year-old female who presents to the emergency department with chief complaint of possible UTI and STD. Patient reports urinary frequency and difficulty fully emptying her bladder. She reports right flank pain, chills and sweats and stinging with urination. Patient is unsure if she has any genitalia lesions. She denies any abnormal vaginal discharge or bleeding. Pelvic exam is performed and vesicular/ulcer-like lesions are noted externally with an ulcer noted to the superior vaginal wall. Swabs were taken for chlamydia, gonorrhea, Trichomonas and herpes. Trichomonas is negative. Patient denies ever having an STD. She states that she has been with the same partner for 2 years. She states that they have 2 children together. Patient states that she was concerned for an STD because she caught her boyfriend secretly talking with another female. Urine hCG is negative. UA does reveal leukocyte esterase, high white blood cells and white blood cell clumps. Patient was given ceftriaxone to cover for both gonorrhea and urinary tract infection. She is also given azithromycin to cover chlamydia. Patient will be started on an antiviral as lesions do appear to be herpetic in nature. Discussed with patient waiting for confirmation of confirmed diagnosis. Patient was informed that these tests are send outs and it may take a few days. Patient's vital signs are stable and she is in no acute distress. - Lab Data Lab Results 12/04/17 12/04/17 12/04/17 Range/Units 13:40 13:40 14:11 Urine Color Yellow Urine Appearance Turbid H (Clear) Urine pH 8.0 (5.0-8.0) Ur Specific [place] 1.016 (1.001-1.035) Urine Protein 2+ H (Negative) Urine Glucose (UA) Negative (Negative) Urine Ketones Negative (Negative) Urine Blood Moderate H (Negative) Urine Nitrite Negative (Negative) Urine Bilirubin Negative (Negative) Urine Urobilinogen 2.0 (<2.0) mg/dL Ur Leukocyte Esterase Large H (Negative) Urine RBC 79 H (0-5) /hpf Urine WBC >182 H (0-5) /hpf Urine WBC Clumps Occasional H (None) /hpf Ur Squamous Epith Cells 2 (0-4) /hpf Urine Bacteria Rare H (None) /hpf Urine Mucus Few H (None) /hpf Urine HCG, Qual Not Detected (Not Detectd) Trichomonas Ag (Rapid) Negative (Negative) Disposition Clinical Impression: Urinary tract infection, Female genital lesion Disposition: HOME SELF-CARE Condition: Good Instructions: Sexually Transmitted Diseases (ED), Urinary Tract Infection in Women (ED) Additional Instructions: Please take medications as prescribed. Please follow up with primary care provider within 1-2 days. Return to emergency department if symptoms should worsen or any concerns arise. Prescriptions: valACYclovir HCL [Valtrex] 1,000 mg PO BID 7 Days #14 tablet Is patient prescribed a controlled substance at d/c from ED?: No Referrals: Otto Gold MD [Primary Care Provider] - 1-2 days Time of Disposition: 15:11
[2017-12-04 14:07] LABS: Appearance,Urine Turbid (Clear); Bacteria,Urine Rare /hpf; Bilirubin,Urine Negative (Negative); Blood,Urine Moderate (Negative); Color,Urine Yellow; Glucose,Urine (UA) Negative (Negative); Ketones,Urine Negative (Negative); Leukocyte Esterase,Urine Large (Negative); Mucus,Urine Few /hpf; Nitrite,Urine Negative (Negative); Protein,Urine 2+ (Negative); RBC,Urine 79 /hpf (0-5); Specific Gravity,Urine 1.016 (1.001-1.035); Squamous Epithelial Cell,Urine 2 /hpf (0-4); WBC,Urine >182 /hpf (0-5)
[2017-12-04] MEDS ORDERED: cefTRIAXone 1,000 MG VIAL (IM USE) IM STA (14:22)
[2017-12-04] MEDS ORDERED: AZITHROMYCIN 500 MG TAB PO STA (14:22)
[2017-12-05 14:51] LABS: C. trachomatis,PCR Positive (Neg,Equiv); Chlamydia trachomatis Source Cervix; N. gonorrhoeae,PCR Negative (Neg,Equiv); Neisseria Source Cervix
== END 2017-12-04 15:28 | disposition home or self-care (01) ==
LOC: EC 13:34
DX: N39.0 Urinary tract infection, site not specified (principal); D72.829 Elevated white blood cell count, unspecified; Z88.5 Allergy status to narcotic agent
CPT/HCPCS: 87529; 81001; 81025; 87808; 87491; 87591; 99284; 96372; J0696

== ENCOUNTER 2017-12-06 05:58 | Emergency (ER) | payer OTHER ==
[2017-12-06 06:08] VITALS: BP 108/80; PULSE 95; RESP 20; TEMP 96
--- NOTE | 2017-12-06 07:09 | ED ---
General Adult HPI - General Chief complaint: Urogenital Stated complaint: Urine Retention Time Seen by Provider: 12/06/17 06:37 Source: patient, family, RN notes reviewed Mode of arrival: ambulatory Limitations: no limitations - History of Present Illness Initial comments: Patient 22-year-old female who presents emergency room today with a chief complaint of dysuria. Patient states that she was seen here in the emergency room 2 days ago diagnosed with herpes. She states that she does have genital lesions. She states this is first outbreak. Patient states that she has been taking Valtrex over the last 2 days. States had little relief and still experiencing increased burning sensation on urination. Patient also admits that she was treated with azithromycin and Rocephin here in the emergency room. Patient denies any other complaints or symptoms. Patient denies any recent fever, chills, shortness of breath, chest pain, back pain, abdominal pain, nausea or vomiting, numbness or tingling, constipation or diarrhea, headaches or visual changes, or any other complaints. - Related Data Home Medications Medication Instructions Recorded Confirmed valACYclovir HCL [Valtrex] 1,000 mg PO Q12HR 12/06/17 12/06/17 Previous Rx's Medication Instructions Recorded Nitrofurantoin Monohyd/M-Cryst 100 mg PO Q12HR #14 cap 12/06/17 [Macrobid] Phenazopyridine [Pyridium] 100 mg PO TID 3 Days day 12/06/17 Allergies Allergy/AdvReac Type Severity Reaction Status Date / Time hydromorphone HCl AdvReac Nausea & Verified 12/06/17 06:08 [From Dilaudid] Vomiting morphine AdvReac Nausea & Verified 12/06/17 06:08 Vomiting Review of Systems ROS Statement: Those systems with pertinent positive or pertinent negative responses have been documented in the HPI. ROS Other: All systems not noted in ROS Statement are negative. Past Medical History Past Medical History: No Reported History Additional Past Medical History / Comment(s): UTI History of Any Multi-Drug Resistant Organisms: None Reported Past Surgical History: Section, Tonsillectomy Additional Past Surgical History / Comment(s): wisdom teeth Past Psychological History: No Psychological Hx Reported Smoking Status: Never smoker Past Alcohol Use History: Occasional Past Drug Use History: None Reported General Exam - General Exam Comments Initial Comments: General: The patient is awake and alert, in no distress, and does not appear acutely ill. Eye: extra-ocular movements are intact. No nystagmus. There is normal conjunctiva bilaterally. No signs of icterus. Ears, nose, mouth and throat: There are moist mucous membranes and no oral lesions. Neck: The neck is supple, there is no tenderness or JVD. Cardiovascular: There is a regular rate and rhythm. No murmur, rub or gallop is appreciated. Respiratory: Lungs are clear to auscultation, respirations are non-labored, breath sounds are equal. No wheezes, stridor, rales, or rhonchi. Gastrointestinal: Soft, non-distended, non-tender abdomen without masses or organomegaly noted. There is no rebound or guarding present. No CVA tenderness. Musculoskeletal: Normal ROM, no tenderness. Sensation intact. Neurological: A&O x 3. CN II-XII intact, There are no obvious motor or sensory deficits. Coordination appears grossly intact. Speech is normal. Skin: Skin is warm and dry and no rashes or lesions are noted. Psychiatric: Cooperative, appropriate mood & affect, normal judgment. Limitations: no limitations Course Vital Signs 12/06/17 06:03 Temperature 96 F L Pulse Rate 95 Respiratory 20 Rate Blood Pressure 108/80 O2 Sat by Pulse 98 Oximetry Medical Decision Making - Medical Decision Making Patient's urinalysis does show signs for infection. Patient will be started on antibiotics and Pyridium for symptoms. She is advised following up with the family physician. Advised continue Valtrex. Advised return if symptoms increase or worsen. - Lab Data Lab Results 12/06/17 12/06/17 Range/Units 07:04 07:04 Urine Color Yellow Urine Appearance Cloudy H (Clear) Urine pH 5.5 (5.0-8.0) Ur Specific [place] 1.017 (1.001-1.035) Urine Protein 1+ H (Negative) Urine Glucose (UA) Negative (Negative) Urine Ketones Negative (Negative) Urine Blood Moderate H (Negative) Urine Nitrite Negative (Negative) Urine Bilirubin Negative (Negative) Urine Urobilinogen <2.0 (<2.0) mg/dL Ur Leukocyte Esterase Large H (Negative) Urine RBC 130 H (0-5) /hpf Urine WBC 173 H (0-5) /hpf Ur Squamous Epith Cells 1 (0-4) /hpf Urine Mucus Occasional H (None) /hpf Urine HCG, Qual Not Detected (Not Detectd) Disposition Clinical Impression: UTI (urinary tract infection) Disposition: HOME SELF-CARE Condition: Good Instructions: Urinary Tract Infection in Women (ED) Additional Instructions: Please use medication as discussed. Please follow-up with family doctor in the next 2 days of symptoms have not improved. Please return to emergency room if the symptoms increase or worsen or for any other concerns. Prescriptions: Nitrofurantoin Monohyd/M-Cryst [Macrobid] 100 mg PO Q12HR #14 cap Phenazopyridine [Pyridium] 100 mg PO TID 3 Days day Is patient prescribed a controlled substance at d/c from ED?: No Referrals: Otto Gold MD [Primary Care Provider] - 1-2 days Time of Disposition: 07:34
[2017-12-06 07:25] LABS: Appearance,Urine Cloudy (Clear); Bilirubin,Urine Negative (Negative); Blood,Urine Moderate (Negative); Color,Urine Yellow; Glucose,Urine (UA) Negative (Negative); Ketones,Urine Negative (Negative); Leukocyte Esterase,Urine Large (Negative); Mucus,Urine Occasional /hpf; Nitrite,Urine Negative (Negative); PH, Urine 5.5 (5.0-8.0); Protein,Urine 1+ (Negative); RBC,Urine 130 /hpf (0-5); Specific Gravity,Urine 1.017 (1.001-1.035); Squamous Epithelial Cell,Urine 1 /hpf (0-4); Urobilinogen,Urine <2.0 mg/dL (<2.0); WBC,Urine 173 /hpf (0-5)
== END 2017-12-06 07:43 | disposition home or self-care (01) ==
LOC: EC 05:58
DX: N39.0 Urinary tract infection, site not specified (principal); N90.89 Other specified noninflammatory disorders of vulva and perineum; Z79.899 Other long term (current) drug therapy; Z88.5 Allergy status to narcotic agent
CPT/HCPCS: 81001; 81025; 87086; 99283

== ENCOUNTER 2018-09-25 09:46 | Emergency (ER) | payer OTHER ==
[2018-09-25 09:51] VITALS: RESP 18
[2018-09-25] MEDS ORDERED: ONDANSETRON 4 MG/2 ML VIAL IVP STA (10:44)
[2018-09-25] MEDS ORDERED: SODIUM CHLORIDE 0.9% 2,000 ML IV ONE (10:44)
--- NOTE | 2018-09-25 10:45 | ED ---
Nausea/Vomiting/Diarrhea HPI - General Chief complaint: Nausea/Vomiting/Diarrhea Stated complaint: Vomiting/Abd pain 16 week preg Time Seen by Provider: 09/25/18 10:04 Source: patient, RN notes reviewed Mode of arrival: ambulatory Limitations: no limitations - History of Present Illness Initial comments: This is a 23-year-old female presents emergency Department chief complaint of nausea vomiting diarrhea. Patient states pain woke her up around 2 AM in the epigastric region. Patient is nonradiating type pain. Patient's states that she still very nauseated, dry heaving. Patient states that she's had some intermittent nausea vomiting throughout her but never to this extent no pain like this. Denies any vaginal bleeding or vaginal discharge. Patient states she has no lower abdominal pain. Patient is A0 currently 16 weeks and seen DRYERMAN[facility]AN in [facility] Home Medications Medication Instructions Recorded Confirmed Duq-Cgsc-Morze Acid 1 cap PO DAILY 09/25/18 09/25/18 [-U Capsule (formulary)] Previous Rx's Medication Instructions Recorded Cephalexin [Keflex] 500 mg PO Q8HR #21 cap 09/25/18 Allergies Allergy/AdvReac Type Severity Reaction Status Date / Time hydromorphone HCl AdvReac Nausea & Verified 09/25/18 10:01 [From Dilaudid] Vomiting morphine AdvReac Nausea & Verified 09/25/18 10:01 Vomiting Review of Systems ROS Statement: Those systems with pertinent positive or pertinent negative responses have been documented in the HPI. ROS Other: All systems not noted in ROS Statement are negative. Past Medical History Past Medical History: No Reported History Additional Past Medical History / Comment(s): UTI History of Any Multi-Drug Resistant Organisms: None Reported Past Surgical History: Section, Tonsillectomy Additional Past Surgical History / Comment(s): wisdom teeth Past Psychological History: No Psychological Hx Reported Smoking Status: Never smoker Past Alcohol Use History: Occasional Past Drug Use History: None Reported General Exam Limitations: no limitations General appearance: alert, in no apparent distress Head exam: Present: atraumatic, normocephalic, normal inspection Neck exam: Present: normal inspection. Absent: tenderness, meningismus, lymphadenopathy Respiratory exam: Present: normal lung sounds bilaterally. Absent: respiratory distress, wheezes, rales, rhonchi, stridor Cardiovascular Exam: Present: regular rate, normal rhythm, normal heart sounds. Absent: systolic murmur, diastolic murmur, rubs, gallop, clicks GI/Abdominal exam: Present: soft, tenderness (Mild to moderate right upper quadrant, epigastric tenderness), normal bowel sounds. Absent: distended, guarding, rebound, rigid Back exam: Absent: CVA tenderness (R), CVA tenderness (L) Neurological exam: Present: alert, oriented X3, CN II-XII intact Skin exam: Present: warm, dry, intact, normal color. Absent: rash Course Vital Signs 09/25/18 09:49 Temperature 98.5 F Pulse Rate 115 H Respiratory 18 Rate Blood Pressure 105/71 O2 Sat by Pulse 97 Oximetry Medical Decision Making - Medical Decision Making 23-year-old female presents emergency department for nausea vomiting diarrhea. Patient has gastroenteritis. She was hydrated with 2 L of fluid and given Zofran. Patient is on a urinary tract infection given Rocephin emergency department. Patient be discharged on Keflex and return parameters discussed. - Lab Data Result diagrams: 09/25/18 10:15 09/25/18 10:15 Lab Results 09/25/18 09/25/18 09/25/18 Range/Units 10:15 10:15 11:27 WBC 8.6 (3.8-10.6) k/uL RBC 4.71 (3.80-5.40) m/uL Hgb 14.3 (11.4-16.0) gm/dL Hct 42.6 (34.0-46.0) % MCV 90.4 (80.0-100.0) fL MCH 30.4 (25.0-35.0) pg MCHC 33.7 (31.0-37.0) g/dL RDW 13.5 (11.5-15.5) % Plt Count 172 (150-450) k/uL Neutrophils % 88 % Lymphocytes % 7 % Monocytes % 4 % Eosinophils % 0 % Basophils % 0 % Neutrophils # 7.5 (1.3-7.7) k/uL Lymphocytes # 0.6 L (1.0-4.8) k/uL Monocytes # 0.4 (0-1.0) k/uL Eosinophils # 0.0 (0-0.7) k/uL Basophils # 0.0 (0-0.2) k/uL Sodium 137 (137-145) mmol/L Potassium 3.9 (3.5-5.1) mmol/L Chloride 106 (98-107) mmol/L Carbon Dioxide 21 L (22-30) mmol/L Anion Gap 10 mmol/L BUN 7 (7-17) mg/dL Creatinine 0.46 L (0.52-1.04) mg/dL Est GFR (CKD-EPI)AfAm >90 (>60 ml/min/1.73 sqM) Est GFR (CKD-EPI)NonAf >90 (>60 ml/min/1.73 sqM) Glucose 79 (74-99) mg/dL Calcium 8.6 (8.4-10.2) mg/dL Total Bilirubin 0.9 (0.2-1.3) mg/dL AST 20 (14-36) U/L ALT 12 (9-52) U/L Alkaline Phosphatase 80 (38-126) U/L Total Protein 7.0 (6.3-8.2) g/dL Albumin 3.9 (3.5-5.0) g/dL Amylase 62 (30-110) U/L Lipase 43 (23-300) U/L Urine Color Yellow Urine Appearance Cloudy H (Clear) Urine pH 7.0 (5.0-8.0) Ur Specific [place] 1.016 (1.001-1.035) Urine Protein Trace H (Negative) Urine Glucose (UA) Negative (Negative) Urine Ketones Negative (Negative) Urine Blood Negative (Negative) Urine Nitrite Negative (Negative) Urine Bilirubin Negative (Negative) Urine Urobilinogen <2.0 (<2.0) mg/dL Ur Leukocyte Esterase Moderate H (Negative) Urine WBC 48 H (0-5) /hpf Ur Squamous Epith Cells 2 (0-4) /hpf Urine Bacteria Rare H (None) /hpf Urine Mucus Rare H (None) /hpf Disposition Clinical Impression: Gastroenteritis, UTI (urinary tract infection) Disposition: HOME SELF-CARE Condition: Stable Instructions (If sedation given, give patient instructions): Acute Nausea and Vomiting (ED) Additional Instructions: Please return to the Emergency Department if symptoms worsen or any other concerns. Prescriptions: Cephalexin [Keflex] 500 mg PO Q8HR #21 cap Is patient prescribed a controlled substance at d/c from ED?: No Referrals: Otto Gold MD [Primary Care Provider] - 1-2 days Time of Disposition: 12:24
[2018-09-25 11:29] LABS: ALT 12 U/L (9-52); AST 20 U/L (14-36); African American GFR (CKD) >90 (>60 ml/min/1.73 sqM); Albumin 3.9 g/dL (3.5-5.0); Alkaline Phosphatase 80 U/L (38-126); Amylase 62 U/L (30-110); Anion Gap 10 mmol/L; Blood Urea Nitrogen 7 mg/dL (7-17); Calcium 8.6 mg/dL (8.4-10.2); Carbon Dioxide 21 mmol/L (22-30); Chloride 106 mmol/L (98-107); Glucose 79 mg/dL (74-99); Lipase 43 U/L (23-300); Potassium 3.9 mmol/L (3.5-5.1); Sodium 137 mmol/L (137-145); Total Bilirubin 0.9 mg/dL (0.2-1.3)
[2018-09-25 11:33] LABS: Basophils % (A) 0 %; Eosinophils % (A) 0 %; HCT 42.6 % (34.0-46.0); HGB 14.3 gm/dL (11.4-16.0); Lymphocytes # (A) 0.6 k/uL (1.0-4.8); Lymphocytes % (A) 7 %; MCH 30.4 pg (25.0-35.0); MCHC 33.7 g/dL (31.0-37.0); MCV 90.4 fL (80.0-100.0); Mean Platelet Volume 6.8; Monocytes # (A) 0.4 k/uL (0-1.0); Monocytes % (A) 4 %; Neutrophils # (A) 7.5 k/uL (1.3-7.7); Neutrophils % (A) 88 %; Platelet Count 172 k/uL (150-450); RBC 4.71 m/uL (3.80-5.40); RDW 13.5 % (11.5-15.5); WBC 8.6 k/uL (3.8-10.6)
--- NOTE | 2018-09-25 11:37 | US ---
EXAMINATION TYPE: US gallbladder DATE OF EXAM: 09/25/2018 COMPARISON: CT CLINICAL HISTORY: Pain. Pt states RUQ pain, nausea, approx 16 weeks EXAM MEASUREMENTS: Liver Length: 14.1 cm Gallbladder Wall: 0.1 cm CBD: 0.4 cm Right Kidney: 9.5 x 4.0 x 4.9 cm Pancreas: wnl Liver: wnl Gallbladder: wnl Evidence for sonographic Bull's sign: No CBD: wnl Right Kidney: wnl No abnormality visualized to account for pt's symptoms IMPRESSION: 1. No acute process.
[2018-09-25 11:40] LABS: Appearance,Urine Cloudy (Clear); Bacteria,Urine Rare /hpf; Bilirubin,Urine Negative (Negative); Blood,Urine Negative (Negative); Color,Urine Yellow; Glucose,Urine (UA) Negative (Negative); Ketones,Urine Negative (Negative); Leukocyte Esterase,Urine Moderate (Negative); Mucus,Urine Rare /hpf; Nitrite,Urine Negative (Negative); Protein,Urine Trace (Negative); Specific Gravity,Urine 1.016 (1.001-1.035); Squamous Epithelial Cell,Urine 2 /hpf (0-4); Urobilinogen,Urine <2.0 mg/dL (<2.0)
[2018-09-25] MEDS ORDERED: cefTRIAXone IN SWFI 1,000 MG/10 ML SYRINGE IVP STA (12:03)
[2018-09-25] MEDS ORDERED: ONDANSETRON 4 MG ODT STARTER PACK 2 TAB BTL PO STA (12:24)
[2018-09-25 12:40] VITALS: TEMP 96.8
[2018-09-25 12:55] VITALS: BP 98/70; PULSE 78
== END 2018-09-25 12:54 | disposition home or self-care (01) ==
LOC: EC 09:46
DX: O99.612 Diseases of the digestive system complicating pregnancy, second trimester (principal); K52.9 Noninfective gastroenteritis and colitis, unspecified; O23.42 Unspecified infection of urinary tract in pregnancy, second trimester; Z88.5 Allergy status to narcotic agent; Z98.890 Other specified postprocedural states; Z3A.16 16 weeks gestation of pregnancy
CPT/HCPCS: 99284; 96374; 96375; 96361 ×2; 36415; 80053; 82150; 83690; 85025; 81001; 87086; 76705; J2405; J0696

== ENCOUNTER 2019-01-09 22:27 | Outpatient (CLI) | payer OTHER ==
[2019-01-09 23:09] VITALS: BP 116/60; PULSE 82; RESP 16; TEMP 97.7
--- NOTE | 2019-01-26 10:35 | P.MSEPDOC ---
Presenting Problems - Arrival Data Date of Arrival on Unit: 01/09/19 Time of Arrival on Unit: 22:27 Mode of Transport: Wheelchair - Complaint OB-Reason for Admission/Chief Complaint: Possible Onset of Labor Medical History - Information : 3 Para: 2 Term: 2 : 0 Abortions: Spontaneous or Elective: 0 Number of Living Children: 2 - Gestational Age Gestational Age by GRACY (wks/days): 32 Weeks and 3 Days - History Complications: Prior Review of Systems - Review of Systems Constitutional: No problems Breast: No problems ENT: No problems Cardiovascular: No problems Respiratory: No problems Gastrointestinal: No problems Genitourinary: No problems Musculoskeletal: No problems Neurological: No problems Skin: No problems Vital Signs - Temperature Temperature: 97.7 F Temperature Source: Oral - Pulse Right Brachial Pulse Rate: 82 Pulse Assessment Method: Automatic Cuff - Respirations Respiratory Rate: 16 Oxygen Delivery Method: Room Air O2 Sat by Pulse Oximetry: 98 - Blood Pressure Right Arm Blood Pressure: 116/60 Blood Pressure Mean: 78 Blood Pressure Source: Automatic Cuff Medical Screen Scoring (Pre) - Cervical Exam Dilation: Exam Deferred Effacement: Exam Deferred Membranes: Intact - Uterine Contractions Frequency: > 5 minutes apart = 1 Duration: N/A Intensity: N/A - Maternal Vital Signs Maternal Temperature: N/A Signs of Preeclampsia: N/A Maternal Respirations: N/A - Maternal Trauma Maternal Trauma: N/A - Assessment - Baby A Baseline FHR: 120 Heart Rate - NICHD Category: Category I (Normal) = 0 NST: Reactive Position: N/A Station: N/A - Total Score - Baby A Total Score - Baby A: 1 - Total Score - Baby B Total Score - Baby B: 1 - Total Score - Baby C Total Score - Baby C: 1 - Level of Risk - Baby A Level of Risk - Baby A: Low (0-5) - Level of Risk - Baby B Level of Risk - Baby B: Low (0-5) - Level of Risk - Baby C Level of Risk - Baby C: Low (0-5) Physician Notification (Pre) - Physician Notified Physician Notified Date: 01/09/19 Physician Notified Time: 22:55 Physician/Practitioner Notifed:: Dr. Santana Spoke With: Dr. Santana New Order Received: Yes - Notification Comment Comment: Dr. Santana called and given report on pt in tr. Pt. C/o. VS WNL.Abdomen soft/nontender. Reactive NST. No contractions noted per pt or monitor. No leaking or bleeding. Orders recieved to d/c pt to home with normal labor precautions. To educate pt to follow up with OB Disposition - Disposition OB Disposition: Discharge to home Discharge Date: 01/09/19 Discharge Time: 23:07 I agree with the RN Medical Screening Exam: Yes Risk & Benefit of care provided described in d/c instruction: Yes Diagnosis: FALSE LABOR AT OR AFTER 37 COMPLETED WEEKS OF GESTATION
== END 2019-01-09 23:07 | disposition home or self-care (01) ==
LOC: FBPOP 22:27
PROVIDERS: ATTEND Obstetrics & Gynecology Obstetrics
DX: O47.1 False labor at or after 37 completed weeks of gestation (principal); Z3A.32 32 weeks gestation of pregnancy
CPT/HCPCS: 59025; G0463; 99213

== ENCOUNTER 2019-06-20 14:53 | Emergency (ER) | payer OTHER ==
[2019-06-20 14:58] VITALS: RESP 16
--- NOTE | 2019-06-20 15:34 | ED ---
General Adult HPI - General Chief complaint: Abdominal Pain Stated complaint: constipation Time Seen by Provider: 06/20/19 15:10 Source: patient, RN notes reviewed Mode of arrival: ambulatory Limitations: no limitations - History of Present Illness Initial comments: 23-year-old female with a past medical history of urinary tract infection presents to the emergency department for a chief complaint of constipation. Patient states she had her fallopian tubes removed 4 days ago. States that she has not been able to have a bowel movement for about a week. Patient states she does have a history of constipation but usually does not go this long. States that she take stool softeners but has not tried anything else. States she feels she needs to have a bowel movement but denies any significant abdominal pain associated with this route she does have some mild abdominal cramping that comes and goes. Denies fevers or chills. States that she last urinated 2 hours ago and urination has been normal. She called her OB out of [place] who recommended she come to the emergency department given her constipation. Patient is not on any new medications after her surgery.Patient has no other complaints at this time including shortness of breath, chest pain, nausea or vomiting, headache, or visual changes. - Related Data Home Medications Medication Instructions Recorded Confirmed Rsv-Ypnk-Vaqxq Acid 1 cap PO DAILY 09/25/18 01/09/19 [-U Capsule (formulary)] Allergies Allergy/AdvReac Type Severity Reaction Status Date / Time hydromorphone HCl AdvReac Nausea & Verified 06/20/19 14:55 [From Dilaudid] Vomiting morphine AdvReac Nausea & Verified 06/20/19 14:55 Vomiting Review of Systems ROS Statement: Those systems with pertinent positive or pertinent negative responses have been documented in the HPI. ROS Other: All systems not noted in ROS Statement are negative. Past Medical History Past Medical History: No Reported History Additional Past Medical History / Comment(s): UTI History of Any Multi-Drug Resistant Organisms: None Reported Past Surgical History: Section, Tonsillectomy, Tubal Ligation Additional Past Surgical History / Comment(s): wisdom teeth Past Psychological History: No Psychological Hx Reported Smoking Status: Never smoker Past Alcohol Use History: None Reported Past Drug Use History: None Reported General Exam Limitations: no limitations General appearance: alert, in no apparent distress Head exam: Present: atraumatic, normocephalic, normal inspection Eye exam: Present: normal appearance, PERRL, EOMI. Absent: scleral icterus, conjunctival injection, periorbital swelling ENT exam: Present: normal exam, mucous membranes moist Neck exam: Present: normal inspection, full ROM. Absent: tenderness, meningismus Respiratory exam: Present: normal lung sounds bilaterally. Absent: respiratory distress, wheezes, rales, rhonchi, stridor Cardiovascular Exam: Present: regular rate, normal rhythm, normal heart sounds. Absent: systolic murmur, diastolic murmur, rubs, gallop, clicks GI/Abdominal exam: Present: soft, normal bowel sounds. Absent: distended, tenderness (No significant lower abdominal tenderness.), guarding, rebound, rigid Neurological exam: Present: alert Course Vital Signs 06/20/19 14:55 Temperature 98.0 F Pulse Rate 90 Respiratory 16 Rate Blood Pressure 108/78 O2 Sat by Pulse 100 Oximetry Medical Decision Making - Medical Decision Making Vitals are stable. Physical exam is unremarkable. No significant lower abdominal tenderness. Patient is actually denying abdominal pain at this time but states that she just has the urge to have a bowel movement but cannot go. X-ray obtained showed a nonobstructive bowel gas pattern. However there is moderate amount of stool noted on x-ray or KUB. I did offer to digitally disimpact and or given enema to patient however she refuses at this time. She does agree to try magnesium citrate. She prefers to try this at home. She was given a bottle here in the emergency Department to take with her. She'll return for any worsening symptoms including fevers or abdominal pain. I discussed this case with attending Dr. Abbott who agrees with this assessment and treatment plan. Disposition Clinical Impression: Abdominal cramping, Constipation Disposition: HOME SELF-CARE Condition: Good Instructions (If sedation given, give patient instructions): Constipation (ED) Additional Instructions: Please take magnesium citrate when you get home. Drink plenty of water with this. Follow-up with primary care in 1-2 days. Return here if you have any worsening symptoms such as worsening abdominal pain or fevers. Is patient prescribed a controlled substance at d/c from ED?: No Referrals: Otto Gold MD [Primary Care Provider] - 1-2 days Time of Disposition: 16:18
--- NOTE | 2019-06-20 15:56 | XR ---
EXAMINATION TYPE: XR KUB DATE OF EXAM: 06/20/2019 3:46 PM CLINICAL HISTORY: Constipation TECHNIQUE: Single upright image of the abdomen is obtained. COMPARISON: 07/19/2016 FINDINGS: The liver is enlarged extending beyond the iliac crest. No pneumoperitoneum on the upright image. No dilated large or small bowel. Osseous structures are grossly intact. No abnormal calcificat ion in the abdomen or pelvis. Lung bases are well aerated. IMPRESSION: 1. Nonobstructive bowel gas pattern. 2. Incidentally noted hepatomegaly.
[2019-06-20] MEDS ORDERED: MAGNESIUM CITRATE 296 ML BOTTLE PO STA (16:06)
[2019-06-20 16:35] VITALS: BP 110/75; PULSE 86; TEMP 98.2
== END 2019-06-20 16:35 | disposition home or self-care (01) ==
LOC: EC 14:53
DX: K59.00 Constipation, unspecified (principal); Z88.5 Allergy status to narcotic agent
CPT/HCPCS: 74018; 99284

== ENCOUNTER 2020-07-16 11:16 | Emergency (ER) | payer OTHER ==
[2020-07-16 11:29] VITALS: BP 116/83; PULSE 100; RESP 20; TEMP 99.7
[2020-07-16] MEDS ORDERED: IBUPROFEN 600 MG TAB PO STA (12:33)
[2020-07-16] MEDS ORDERED: ACETAMINOPHEN TAB 500 MG TAB PO STA (12:33)
[2020-07-16] MEDS ORDERED: SODIUM CHLORIDE 0.9% 1,000 ML IV STA (12:33)
[2020-07-16] MEDS ORDERED: ONDANSETRON 4 MG/2 ML VIAL IVP STA (12:33)
--- NOTE | 2020-07-16 12:43 | ED ---
Nausea/Vomiting/Diarrhea HPI - General Chief complaint: Nausea/Vomiting/Diarrhea Stated complaint: Vomiting, post vaccine Time Seen by Provider: 07/16/20 12:07 Source: patient Mode of arrival: ambulatory Limitations: no limitations - History of Present Illness Initial comments: Patient is a healthy 24-year-old female presenting to the emergency Department with complaints of body aches, nausea and vomiting that started early this morning. Patient states she had her first Covid vaccine yesterday and her symptoms started about 12 hours later. She is complaining of fever, body aches, nausea and vomiting. She states she's had very little to drink over the past 12 hours. She feels that she is getting really dehydrated. She took some Tylenol early this morning but none since then. She denies an . She denies any chest pain or shortness of breath. She is no further complaints at this time. - Related Data Home Medications Medication Instructions Recorded Confirmed Xwy-Thny-Ylcsn Acid 1 cap PO DAILY 09/25/18 01/09/19 [-U Capsule (formulary)] Previous Rx's Medication Instructions Recorded Ondansetron Odt [Zofran Odt] 4 mg PO Q8HR PRN #10 tab 07/16/20 Allergies Allergy/AdvReac Type Severity Reaction Status Date / Time hydromorphone HCl AdvReac Nausea & Verified 07/16/20 11:28 [From Dilaudid] Vomiting morphine AdvReac Nausea & Verified 07/16/20 11:28 Vomiting Review of Systems ROS Statement: Those systems with pertinent positive or pertinent negative responses have been documented in the HPI. ROS Other: All systems not noted in ROS Statement are negative. Past Medical History Past Medical History: No Reported History Additional Past Medical History / Comment(s): UTI History of Any Multi-Drug Resistant Organisms: None Reported Past Surgical History: Section, Tonsillectomy, Tubal Ligation Additional Past Surgical History / Comment(s): wisdom teeth Past Psychological History: No Psychological Hx Reported Smoking Status: Never smoker Past Alcohol Use History: None Reported Past Drug Use History: None Reported General Exam - General Exam Comments Initial Comments: GENERAL: Patient is well-developed and well-nourished. Patient is nontoxic and in no [place] distress. HEAD: Atraumatic, normocephalic. EYES: Pupils equal round and reactive to light, extraocular movements intact, sclera anicteric, conjunctiva are normal. Eyelids were unremarkable. ENT: Nares patent, oropharynx clear without exudates. Moist mucous membranes. NECK: Normal range of motion, supple without lymphadenopathy or JVD. LUNGS: Unlabored respirations. Breath sounds clear to auscultation bilaterally and equal. No wheezes rales or rhonchi. HEART: Regular rate and rhythm without murmurs, rubs or gallops. ABDOMEN: Soft, nontender, normoactive bowel sounds. No guarding, no rebound. No masses appreciated. : Deferred MUSCULOSKELETAL: Normal extremities with adequate strength and normal range of motion, no pitting or edema. No clubbing or cyanosis. NEUROLOGICAL: Patient is alert and oriented x 3. Motor and sensory are also intact. Cranial nerves II through XII grossly intact. Symmetrical smile. Normal speech, normal gait. PSYCH: Normal mood, normal affect. SKIN: Warm, Dry, normal turgor, no rashes or lesions noted. Limitations: no limitations Course Vital Signs 07/16/20 11:25 Temperature 99.7 F H Pulse Rate 100 Respiratory 20 Rate Blood Pressure 116/83 O2 Sat by Pulse 100 Oximetry Medical Decision Making - Medical Decision Making Patient is a healthy 24-year-old female here with complaints of fever, body aches, chills and nausea and vomiting that started about 12 hours after she received her first Covid vaccine. Her exam is unremarkable. Patient was given a liter fluids, Zofran as well as Tylenol and Motrin. She feels significant improvement in her symptoms. She is stable for discharge. We discussed alternating Tylenol much of her symptoms, I will give her some Zofran to go home with. She is in agreement with this plan of care. Return parameters were dis cussed with the patient she verbalized understanding. Disposition Clinical Impression: Nausea & vomiting Disposition: HOME SELF-CARE Condition: Stable Instructions (If sedation given, give patient instructions): Acute Nausea and Vomiting (ED) Additional Instructions: Please return to the Emergency Department if symptoms worsen or any other concerns. May take Zofran for any additional nausea or vomiting. Continue to take Tylenol and/or Motrin for fever and body aches. Prescriptions: Ondansetron Odt [Zofran Odt] 4 mg PO Q8HR PRN #10 tab PRN Reason: Nausea Is patient prescribed a controlled substance at d/c from ED?: No Referrals: Otto Gold MD [Primary Care Provider] - 1-2 days Time of Disposition: 13:51
== END 2020-07-16 14:10 | disposition home or self-care (01) ==
LOC: EC 11:16
DX: R11.2 Nausea with vomiting, unspecified (principal); R50.9 Fever, unspecified; R52 Pain, unspecified; Z88.5 Allergy status to narcotic agent
CPT/HCPCS: 99283; 96374; 96361; J2405

== ENCOUNTER 2020-08-29 09:49 | Emergency (ER) | payer OTHER ==
[2020-08-29 10:07] VITALS: BP 121/87; PULSE 67; RESP 18; TEMP 98.9
[2020-08-29] MEDS ORDERED: KETOROLAC 15 MG/ML 1 ML VIAL IM STA (10:14)
--- NOTE | 2020-08-29 10:19 | ED ---
Lower Extremity Injury HPI - General Chief Complaint: Extremity Injury, Lower Stated Complaint: Toenail Injury Time Seen by Provider: 08/29/20 10:09 Source: patient, RN notes reviewed Mode of arrival: ambulatory Limitations: no limitations - History of Present Illness Initial Comments: Patient is a 25-year-old female that presents to the emergency department complaining of right great toenail pain. She notes that she accidentally kicked her bed railing which peeled her toenail back. She notes she does work at [email or web address] went there and the doctor noted that they can do anything slightly wrapped it. She decided to come the emergency room to get a further evaluation. She notes that she does have a history of right great toenail issues stated that it's falloff once before and doesn't grow out all the way anymore. She notes that she had a taken off once previously. She notes that she gets acrylic fake nails put on. She was stating that she would pull it off herself if she could but cannot bring herself to cut a little bit of skin to allow herself to do it. She noted the pain was about a 6-7 out of 10 with no relief from anything. She does not follow-up with a liquefier. She denied any weakness numbness tingling fever fatigue chills decreased sensation in that right great toe. - Related Data Home Medications Medication Instructions Recorded Confirmed Biw-Hchv-Mtuxh Acid 1 cap PO DAILY 09/25/18 01/09/19 [-U Capsule (formulary)] Previous Rx's Medication Instructions Recorded Ondansetron Odt [Zofran Odt] 4 mg PO Q8HR PRN #10 tab 07/16/20 Cephalexin [Keflex] 500 mg PO Q8HR 5 Days #15 cap 08/29/20 Allergies Allergy/AdvReac Type Severity Reaction Status Date / Time hydromorphone HCl AdvReac Nausea & Verified 08/29/20 10:07 [From Dilaudid] Vomiting morphine AdvReac Nausea & Verified 08/29/20 10:07 Vomiting Review of Systems ROS Statement: Those systems with pertinent positive or pertinent negative responses have been documented in the HPI. ROS Other: All systems not noted in ROS Statement are negative. Past Medical History Past Medical History: No Reported History Additional Past Medical History / Comment(s): UTI History of Any Multi-Drug Resistant Organisms: None Reported Past Surgical History: Section, Tonsillectomy, Tubal Ligation Additional Past Surgical History / Comment(s): wisdom teeth Past Psychological History: No Psychological Hx Reported Smoking Status: Never smoker Past Alcohol Use History: None Reported Past Drug Use History: None Reported General Exam Limitations: no limitations General appearance: alert, in no apparent distress Head exam: Present: atraumatic, normocephalic, normal inspection Eye exam: Present: normal appearance, PERRL, EOMI. Absent: scleral icterus, conjunctival injection, periorbital swelling Neck exam: Present: normal inspection. Absent: tenderness, meningismus, lymphadenopathy Respiratory exam: Present: normal lung sounds bilaterally. Absent: respiratory distress, wheezes, rales, rhonchi, stridor Cardiovascular Exam: Present: regular rate, normal rhythm, normal heart sounds. Absent: systolic murmur, diastolic murmur, rubs, gallop, clicks GI/Abdominal exam: Present: soft, normal bowel sounds. Absent: distended, tenderness, guarding, rebound, rigid Extremities exam: Present: normal inspection, full ROM, normal capillary refill. Absent: tenderness, pedal edema, joint swelling, calf tenderness Right Foot/Toe exam: Present: full ROM, nail avulsion (Right great toe, nail bed intact). Absent: swelling, abrasion, laceration, puncture wound, foreign body Neurovascular tendon exam: Present: no vascular compromise Neurological exam: Present: alert, oriented X3, CN II-XII intact Psychiatric exam: Present: normal affect, normal mood Skin exam: Present: warm, dry, intact, normal color. Absent: rash Course Vital Signs 08/29/20 10:05 Temperature 98.9 F Pulse Rate 67 Respiratory 18 Rate Blood Pressure 121/87 O2 Sat by Pulse 100 Oximetry Procedures - Procedures Initial comment: Right great toe toenail removal. 1% lidocaine was used for a digital block with approximately 6 mL used. Site was cleaned prior using alcohol swab. Hemostats were used to grasp the nail for removal. Nail bed was washed out extensively using normal saline and then dressed with nonadhesive bandage and Coban. Patient tolerated well. Medical Decision Making - Medical Decision Making 25-year-old female with right great toenail avulsion. X-ray of the right great toe, 15 mg of Toradol ordered 1% lidocaine ordered for digital block. Case discussed with Dr. Abbott, patient can discharge home with follow-up to primary care and podiatry. - Radiology Data Radiology results: report reviewed, image reviewed Right great toe x-ray: There is displaced fracture deformity through the overlying nail. No acute fracture dislocation osseous structure. Joint spaces are maintained. Disposition Clinical Impression: Avulsion of toenail of right foot Disposition: HOME SELF-CARE Condition: Stable Instructions (If sedation given, give patient instructions): Nail Avulsion (ED), Nail Removal (ED) Additional Instructions: Please return to the Emergency Department if symptoms worsen or any other concerns. Keep toe bandage clean and dry. Follow-up with podiatry as soon as possible. Take Tylenol Motrin as needed for pain control. Take antibiotics as prescribed until complete. Follow-up primary care as needed also. Work note given. Is patient prescribed a controlled substance at d/c from ED?: No Referrals: Otto Gold MD [Primary Care Provider] - 1-2 days Time of Disposition: 11:50
[2020-08-29] MEDS ORDERED: LIDOCAINE 1% INJ 10MG/ML (20 ML MDV) SQ ONE (10:55)
--- NOTE | 2020-08-29 10:56 | XR ---
EXAMINATION TYPE: XR toes RT DATE OF EXAM: 08/29/2020 COMPARISON: Right foot x-ray December 14, 2011 HISTORY: Injury last night with pain. TECHNIQUE: 3 views right first toe. FINDINGS: There is displaced fracture deformity through the overlying nail. No acute fracture or disl ocation in the osseous structures. Joint spaces are maintained. IMPRESSION: As above.
== END 2020-08-29 12:08 | disposition home or self-care (01) ==
LOC: EC 09:49
DX: S91.201A Unspecified open wound of right great toe with damage to nail, initial encounter (principal); W22.8XXA Striking against or struck by other objects, initial encounter
CPT/HCPCS: 73660; 99283; 96372; 11730; J2001; J1885

== ENCOUNTER → 2021-01-10 | Outpatient (CLI) | payer OTHER ==
[2021-01-10 13:11] LABS: Partial Thromboplastin Time 25.2 sec (22.0-30.0); Prothrombin Time 10.5 sec (9.0-12.0)
[2021-01-10 13:12] LABS: Appearance,Urine Clear (Clear); Bilirubin,Urine Negative (Negative); Blood,Urine Trace (Negative); Color,Urine Yellow; Glucose,Urine (UA) Negative (Negative); Hyaline Casts,Urine 1 /lpf (0-2); Ketones,Urine Negative (Negative); Leukocyte Esterase,Urine Small (Negative); Mucus,Urine Few /hpf; Nitrite,Urine Negative (Negative); Protein,Urine Negative (Negative); RBC,Urine 3 /hpf (0-5); Specific Gravity,Urine 1.025 (1.001-1.035); Squamous Epithelial Cell,Urine 1 /hpf (0-4); Urobilinogen,Urine <2.0 mg/dL (<2.0); WBC,Urine 1 /hpf (0-5)
[2021-01-10 18:55] LABS: HCT 43.3 % (37.2-46.3); HGB 14.4 g/dL (12.0-15.0); MCH 30.3 pg (27.0-32.0); MCHC 33.3 g/dL (32.0-37.0); MCV 91.2 fL (80.0-97.0); Mean Platelet Volume 9.9 fL (9.5-12.2); Platelet Count 218 X 10*3/uL (140-440); RBC 4.75 X 10*6/uL (4.10-5.20); RDW 12.2 % (11.5-14.5); WBC 5.43 X 10*3/uL (4.50-10.00)
--- NOTE | 2021-01-10 21:38 | XR ---
EXAMINATION TYPE: XR chest 2V DATE OF EXAM: 01/10/2021 COMPARISON: NONE HISTORY: Presurgical study. TECHNIQUE: Frontal and lateral views of the chest are obtained. FINDINGS: There is no focal air space opacity, pleural effusion, or pneumothorax seen. The cardiac silhouette size is within normal limits. The osseous structures are intact. Bilateral overlying met allic nipple ornaments incidentally noted. IMPRESSION: No acute cardiopulmonary process.
[2021-01-11 07:48] LABS: ALT 14 U/L (8-44); AST 17 U/L (13-35); African American GFR (CKD) 123.9 (60.0-200.0); Albumin 4.6 g/dL (3.8-4.9); Albumin/Globulin Ratio 1.69 (1.60-3.17); Alkaline Phosphatase 74 U/L (41-126); BUN/Creat Ratio 18.49 Ratio (12.00-20.00); Blood Urea Nitrogen 14.2 mg/dL (9.0-27.0); Calcium 9.4 mg/dL (8.7-10.3); Carbon Dioxide 24.6 mmol/L (21.6-31.8); Chloride 101 mmol/L (96-109); Globulin 2.7 g/dL (1.6-3.3); Glucose 87 mg/dL (70-110); Non-African American GFR(CKD) 106.9 (60.0-200.0); Potassium 4.6 mmol/L (3.5-5.5); Sodium 138 mmol/L (135-145); Total Protein 7.3 g/dL (6.2-8.2)
[2021-01-11 12:34] LABS: HCG,Quantitative Serum <0.1 (0.0-6.0)
[2021-01-12 01:06] LABS: HIV 2 AB Non-Reactive (Non-Reactive); HIV AB P24 Non-Reactive (Non-Reactive); HIV P24 AG Non-Reactive (Non-Reactive)
== END | disposition home or self-care (01) ==
LOC: LABWHC1 12:13
PROVIDERS: ATTEND Internal Medicine
DX: Z01.818 Encounter for other preprocedural examination (principal); Z11.3 Encounter for screening for infections with a predominantly sexual mode of transmission
CPT/HCPCS: 36415; 71046; 80053; 81001; 83036; 84443; 84702; 85027; 85610; 85730; 86803; 87390